=== PATIENT | female | born 1965 | race Caucasian/White ===

== ENCOUNTER 2021-01-09 16:57 | Outpatient (CLI) | payer OTHER, SELFPAY ==
--- NOTE | 2021-01-09 17:10 | XR_ITS ---
WS: [id number] ABDOMEN 1 VIEW(S) HISTORY: URINARY INCONTINENCE/ABD MASS LLQ /UTI/UTERINE FIBROIDS COMPARISON: 09/24/2014 CT. There is a large soft tissue mass centered in the pelvis arising into the abdomen. This mass was also seen on the prior study from 2014. Mass is best visualized over the RIGHT abdomen and pelvis measuri ng at least 7 length and transversely by greater than 10 cm. This mass probably extends into the LEFT abdomen. There are a few amorphic calcifications centered over the sacrum and in the LEFT adnexa. No bone abnormality. XR/XR abdomen 1V* [id number] IMPRESSION: 1. Large pelvic and abdominal mass as described above. This mass was also visu alized on the CT from 2014. No history of interval surgery. This could be ovari an or uterine in etiology. Recommend reevaluation by CT. CT abdomen and pelvis with IV and oral contrast recommended. 2. Displacement of the GI tract by the mass but no obstruction.
== END 2021-01-09 16:58 | disposition home or self-care (01) ==
LOC: RAD 17:01
PROVIDERS: PCP Electrodiagnostic Medicine; Visit Provider Electrodiagnostic Medicine
DX: R32 Unspecified urinary incontinence (principal); R19.04 Left lower quadrant abdominal swelling, mass and lump; R31.9 Hematuria, unspecified; N39.0 Urinary tract infection, site not specified; D25.9 Leiomyoma of uterus, unspecified
CPT/HCPCS: 74018

== ENCOUNTER 2021-01-16 08:07 | Outpatient (CLI) | payer OTHER, SELFPAY ==
--- NOTE | 2021-01-16 08:23 | CT_ITS ---
WS: [id number] Exam: CT abdomen pelvis w con* [id number] Date/Time of Exam: 01/16/2021 8:15 AM Reason For Exam: URINARY INCONTINENCE, LLQ ABDOMEN PAIN, HEMATURIA DLP: 1171.[address] scans at [facility] use at least one of these dose optimization techniques: automated e xposure control; mA and/or kV adjustment per patient size (includes targeted exams where dose is matc hed to clinical indication); or iterative reconstruction. The abdomen is evaluated in the axial plane with sagittal coronal reformatted images. Intravenous and oral contrast are administered. Compared to previous study 09/24/2014. A large bilobulated mass which probably arises from the pelvis extends into the abdomen. The mass ujlia sures 25 x 25 x 27 cm. The mass is predominantly solid and heterogeneous with areas of contrast enhan cement as well as focal areas of decreased attenuation probably representing necrosis. The mass is la rger than noted previously. The liver, stomach, pancreas, and spleen appear normal. The abdominal aor ta is normal in caliber. The portal vein and IVC are patent. Small bowel loops are not dilated. There is superior displacement of the transverse and right colon secondary to the above-described mass. No lymphadenopathy or ascites is seen. The kidneys function and drain normally. No renal obstruction. N ormal adrenal glands. There is significant compression of the urinary bladder within the pelvis. No p elvic lymphadenopathy is seen. No significant large bowel abnormality identified. No sign of acute ap pendix. Bony structures are unremarkable. Normal-appearing ovaries are not definitely identified. Parminder ateral pelvic varices. CT/CT abdomen pelvis w con* [id number] IMPRESSION: 1. Enlarging abdominal pelvic mass measuring 25 x 25 x 27 cm. The mass is solid with areas of heterogeneous contrast enhancement. There are also areas of calc ification and decreased attenuation which may represent necrosis. This mass lik addison arises from the pelvis that may be a large uterine fibroid. The mass causes significant compression of the urinary bladder. The mass also elevates the tra nsverse and right colon. 2. No indication of pelvic or abdominal lymphadenopathy or ascites.
[2021-01-16] MEDS: iohexol 300 mg/mL 50 mL Btl PO (10:11)
[2021-01-16] MEDS: iohexol 300 mg/mL 100 mL Btl IV (10:11)
== END 2021-01-16 08:08 | disposition home or self-care (01) ==
PROVIDERS: PCP Electrodiagnostic Medicine; Visit Provider Electrodiagnostic Medicine
DX: R32 Unspecified urinary incontinence (principal); R19.04 Left lower quadrant abdominal swelling, mass and lump; R31.9 Hematuria, unspecified
CPT/HCPCS: 74177; Q9967

== ENCOUNTER → 2021-02-10 10:09 | Outpatient (BNVA) | payer OTHER, SELFPAY | PROVIDERS: PCP Electrodiagnostic Medicine; Visit Provider Obstetrics & Gynecology | DX: R19.09 Other intra-abdominal and pelvic swelling, mass and lump (principal); N85.4 Malposition of uterus; Z12.4 Encounter for screening for malignant neoplasm of cervix; N95.0 Postmenopausal bleeding | CPT/HCPCS: 76856; 81500; 84443; 87624 ==

== ENCOUNTER 2024-06-29 09:55 | Oncology outpatient (recurring) (ONCR) | payer BC, SELFPAY ==
[2024-06-29 11:00] LABS: Basophils % 0.4 %; Eosinophils # 0.1 10^3/uL (0.0-0.8); Eosinophils % 0.7 %; Hematocrit 28.8 % (36-47); Lymphocytes # 0.4 10^3/uL (0.8-4.8); Mean Corpuscular HGB Conc 31.3 g/dL (30-55); Mean Corpuscular Hemoglobin 27.8 pg (27-33); Mean Corpuscular Volume 88.9 fl (85-98); Mean Platelet Volume 8.1 fL (7.4-10.4); Monocytes # 0.7 10^3/uL (0.2-0.9); Monocytes % 6.2 %; Neutrophils % 88.3 %; Nucleated Red Blood Cells % 0 %; Platelet Count 404 10^3/cmm (157-399); Red Blood Count 3.24 10^6/uL (3.85-5.65); Red Cell Distribution Width 13.2 % (12.1-15.1); White Blood Count 11.09 10^3/uL (3.29-11.43)
[2024-06-29 11:22] LABS: Alanine Aminotransferase 10 U/L (0-33); Albumin Level 3.7 g/dL (3.5-5.2); Alkaline Phosphatase 87 U/L (35-105); Anion Gap 14.9 (5-19); Aspartate Amino Transferase 16 U/L (0-32); Blood Urea Nitrogen 13 mg/dL (8-23); Calcium 9.4 mg/dL (8.5-10.5); Carbon Dioxide 26 mmol/L (22-29); Chloride 93 mmol/L (98-107); Creatinine Clr Calc Pharmacy 70.6688; Globulin 3.1 g/dL (1.3-4.6); Glomerular Filtration Rate 72.9 mL/min (90-130); Glucose 107 mg/dL (65-115); Osmolality Calculated 271 mOsm/kg (285-295); Potassium 3.9 mmol/L (3.5-5.1); Sodium 130 mmol/L (136-145); Total Bilirubin 0.3 mg/dL (0.15-1.2); Total Protein 6.8 g/dL (6.6-8.7)
== END 2024-07-01 23:59 | disposition home or self-care (01) ==
LOC: ONCMED 09:55
PROVIDERS: PCP Electrodiagnostic Medicine; Visit Provider Internal Medicine Medical Oncology
DX: C53.9 Malignant neoplasm of cervix uteri, unspecified (principal)
CPT/HCPCS: 36415; 80053; 85025

== ENCOUNTER 2024-07-21 11:18 | Emergency (ER) | payer BC, SELFPAY ==
[2024-07-21] VITALS (18 sets, daily range): BP systolic 98–129; BP diastolic 61–81; PULSE 114–139; RESP 13–26; TEMP 36.3–37; O2SAT 91–100
--- NOTE | 2024-07-21 11:40 | W.ED.GENADLT ---
HPI - General Adult General: Chief complaint: Wound/Laceration Stated complaint: sore on L shoulder, bleeding Time Seen by Provider: 07/21/24 11:36 History of Present Illness: 59-year-old female who presents with active bleeding from a fungating tumor that is eroded through the supraclavicular space on the left. She has a history of cervical cancer that is disseminated. Earlier this month she had a port placed and the description of is being a large infected tumor does not appear to be infected at this time but it is very actively bleeding the reports that he has had several episodes of this at home usually he is able to get the bleeding to stop with manual pressure at this time he cannot get it to stop the large amount of blood soaked around the patient's clothing and in bandages that had been applied prior to arrival. Associated symptoms: Deny chest pain, dyspnea or rash Related Data Home Medications ?Medication ?Instructions ?Recorded ?Confirmed lidocaine 5 % topical ointment 1 applic topical DAILY PRN Pain 06/29/24 07/21/24 (Scale Score 4-6) morphine 15 mg tablet,extended 15 mg PO Q12H 06/29/24 07/21/24 release sennosides 8.6 mg-docusate sodium 1 - 2 tab PO BID PRN Constipation 06/29/24 07/21/24 50 mg tablet (Stimulant Laxative Plus) amitriptyline 25 mg tablet 25 mg PO QPM 07/02/24 07/21/24 hydrocodone 5 mg-acetaminophen 325 1 tab PO Q6H PRN Pain 07/21/24 07/21/24 mg tablet Previous Rx's ?Medication ?Instructions ?Recorded ondansetron 8 mg disintegrating 8 mg PO Q8H PRN nausea and 06/29/24 tablet vomiting #60 tabs prochlorperazine maleate 10 mg 10 mg PO Q4H PRN mild nausea #30 06/29/24 tablet (Compazine) tabs gemcitabine 100 mg/mL intravenous 1,700 mg (17 mL) IV .COMPLEX #60 mL 07/21/24 solution Allergies Allergy/AdvReac Type Severity Reaction Status Date / Time oxycodone Allergy Intermediate ALGY-Joint Verified 07/03/24 11:25 Pain Review of Systems Const: Denies: fever(s) or chills Card: Denies: chest pain Resp: Denies: dyspnea GI: Denies: abdominal pain : Denies: dysuria, urinary frequency or urinary urgency Musc: Reports: neck pain; Denies: back pain Skin/Breast: Denies: rash PFSH ED PFSH: Medical History 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 Rivka Sherwood beverage server onc at [facility]; has had radiation; has L supraclavicular lymph node met that is large--has seen DR. Jones--surgeon--he sent her to ENT and was planning to have surgery but now DR. Sherwood for this Surgical History Hx of melanoma excision anterior neck Hx of hysterectomy hyst w/ BSO due to cervical cancer History of bilateral tubal ligation History of surgery on arm lipoma removed from R arm Family History Mother Cancer Unsure---but in vulva Father Hypertension Stroke Denies family history of Diabetes CAD (coronary artery disease) Clotting disorder Hyperlipidemia Chronic kidney disease (CKD) Bleeding disorder Thyroid disease Social History Smoking and tobacco/nicotine status: former use of tobacco/nicotine Quit status (tobacco/nicotine): has quit using Year quit tobacco: age 23 Alcohol intake: never Substance/Drug Use: current Substance/Drug use frequency: few times a month Household members: spouse Marital status: Number of children: 3 Highest education level completed: High School Graduate Current occupational status: unemployed 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 Physical Exam Const: GENERAL APPEARANCE: cooperative ORIENTATION/CONSCIOUSNESS: Yes oriented to person, Yes oriented to place and Yes oriented to time HENMT: COMMON NORMALS: normocephalic, atraumatic and hearing grossly normal bilaterally HEAD & SCALP: normocephalic and atraumatic Chest: OTHER: Resp: COMMON NORMALS: normal respiratory effort, No retractions, No use of accessory muscles and clear to auscultation bilaterally AUSCULTATION: clear to auscultation bilaterally Cardio: COMMON NORMALS: regular rate, regular rhythm and No murmurs present (Cardio) RATE: regular rate RHYTHM: regular rhythm GI: COMMON NORMALS: Soft to palpation and No hepatosplenomegaly present AUSCULTATION: Yes normoactive bowel sounds PALPATION: Yes Soft to palpation, No Tenderness to palpation present (GI), No Guarding due to palpation present (GI) and Yes No hepatosplenomegaly present Extremity: COMMON NORMALS: normal to inspection, capillary refill normal, no clubbing, cyanosis or edema, no calf tenderness and no pedal edema Neuro: SENSORIUM/ORIENTATION: Yes oriented to person, Yes oriented to place and Yes oriented to time Skin: COMMON NORMALS: no rashes or lesions noted GENERAL SKIN EXAM: no rashes or lesions noted Course Vital Signs: Vital signs: Vital Signs Temperature 98.3 F 07/21/24 16:13 Pulse Rate 127 H 07/21/24 16:45 Respiratory Rate 18 07/21/24 16:45 Blood Pressure 119/74 07/21/24 16:45 Pulse Oximetry 94 07/21/24 16:45 Oxygen Delivery Me thod Room Air 07/21/24 11:26 MDM - General Adult Medical Decision Making On arrival patient has large fungating mass at the base of the left side of the neck. He is actively bleeding from several different areas. Large amount of blood on her clothing and on bandages from home estimate greater than 500 mL. Observed wound blood coming from so many different areas difficult to pinpoint. Quick clot applied and direct pressure bandage held in place by staff. Will transfer patient to a trauma room. Injected the areas that appear to still be bleeding the most with lidocaine with epinephrine 2 figure of 8 sutures were applied see the picture placed on the chart under physical exam. Once the sutures were placed some majority of the bleeding stopped quick clot was reapplied to the area and a pressure bandage applied in a band a layer like fashion using Coban. From that point patient did not have any further bleeding. Was given pain medications as needed will transfer to his Rafa to [facility] for patient is seen for this before. Mostly this will be palliative treatment since the lesion is quite large and is extends down into the mediastinum. Bleeding now controlled discussed the hospitalist at [facility] they have excepted room assignment and given will transfer via [facility]. Patient did have significant drop in her hemoglobin 1 unit of packed red blood cells transfused repeat hemoglobin is stable at 9.1. Had dipped to 7.5 she was tachycardic with this. Lab Data 07/21/24 16:35 07/21/24 11:57 Radiology Impressions Chest X-Ray 07/21/24 11:44 IMPRESSION: Mild right basilar subsegmental atelectasis. Lungs are otherwise clear. Chest CT 07/21/24 12:26 IMPRESSION: 1. Large heterogeneously enhancing fungating soft tissue metastasis involving the LEFT neck and supraclavicular region. Associated internal hemorrhagic blood products with some areas of contrast blushing. Numerous small associated parasitized feeding vessels. 2. LEFT common carotid artery remains patent. LEFT vertebral artery remains patent. 60 to 70% stenosis LEFT proximal subclavian artery encased by tumor just distal to the takeoff of the vertebral artery. 3. Soft tissue tumor extends into the anterior mediastinum, abutting the aortic arch. Bulky necrotic paratracheal, RIGHT hilar, and subcarinal lymphadenopathy. 4. Tumor erodes the manubrium and involves the first rib. 5. Partially visualized large hepatic metastasis. 6. Partially visualized LEFT hydronephrosis. 7. Numerous metastatic pulmonary nodules described above. Laboratory Results WBC 15.30 10^3/uL (3.29-11.43) H 07/21/24 16:35 RBC 3.28 10^6/uL (3.85-5.65) L 07/21/24 16:35 Hgb 9.10 g/dL (11.27-16.99) L 07/21/24 16:35 Hct 29.6 % (36-47) L 07/21/24 16:35 MCV 90.2 fl (85-98) 07/21/24 16:35 MCH 27.7 pg (27-33) 07/21/24 16:35 MCHC 30.7 g/dL (30-55) 07/21/24 16:35 RDW 14.2 % (12.1-15.1) 07/21/24 16:35 Plt Count 412 10^3/cmm (157-399) H 07/21/24 16:35 MPV 8.3 fL (7.4-10.4) 07/21/24 16:35 Neut % (Auto) 86.6 % 07/21/24 16:35 Lymph % (Auto) 6.2 % 07/21/24 16:35 Armstrong % (Auto) 6.1 % 07/21/24 16:35 Eos % (Auto) 0.1 % 07/21/24 16:35 Baso % (Auto) 0.5 % 07/21/24 16:35 Neut # (Auto) 13.24 10^3/uL (1.8-7.7) H 07/21/24 16:35 Lymph # (Auto) 1.0 10^3/uL (0.8-4.8) 07/21/24 16:35 Armstrong # (Auto) 0.9 10^3/uL (0.2-0.9) 07/21/24 16:35 Eos # (Auto) 0.0 10^3/uL (0.0-0.8) 07/21/24 16:35 Baso # (Auto) 0.1 10^3/uL (0.0-0.1) 07/21/24 16:35 Nucleated RBC % (auto) 0 % 07/21/24 16:35 Nucleated RBCs # 0.0 /100WBC 07/21/24 16:35 PT 13.90 SECONDS (12.1-14.9) 07/21/24 11:57 INR 1.00 (0.8-1.2) 07/21/24 11:57 APTT 28.0 SECONDS (23.9-36.7) 07/21/24 11:57 Sodium 133 mmol/L (136-145) L 07/21/24 11:57 Potassium 4.3 mmol/L (3.5-5.1) 07/21/24 11:57 Chloride 97 mmol/L (98-107) L 07/21/24 11:57 Carbon Dioxide 24 mmol/L (22-29) 07/21/24 11:57 Anion Gap 16.3 (5-19) 07/21/24 11:57 BUN 16 mg/dL (8-23) 07/21/24 11:57 Creatinine 0.8 mg/dL (0.5-0.9) 07/21/24 11:57 GFR Calculation 72.9 mL/min (90-130) L 07/21/24 11:57 Glucose 138 mg/dL (65-115) H 07/21/24 11:57 Calculated Osmolality 279 mOsm/kg (285-295) L 07/21/24 11:57 Calcium 9.7 mg/dL (8.5-10.5) 07/21/24 11:57 Total Bilirubin 0.2 mg/dL (0.15-1.2) 07/21/24 11:57 AST 29 U/L (0-32) 07/21/24 11:57 ALT 28 U/L (0-33) 07/21/24 11:57 Alkaline Phosphatase 92 U/L (35-105) 07/21/24 11:57 Total Protein 6.3 g/dL (6.6-8.7) L 07/21/24 11:57 Albumin 3.2 g/dL (3.5-5.2) L 07/21/24 11:57 Globulin 3.1 g/dL (1.3-4.6) 07/21/24 11:57 Blood Type O Positive 07/21/24 12:15 Rho(D) Type Rh positive 07/21/24 12:15 Antibody Screen Negative 07/21/24 12:15 Crossmatch See Detail 07/21/24 12:15 All radiology interpretation(s) finalized by discharge Discharge Plan Discharge Patient Disposition: Xfer Short-Term Hosp Clinical Impression: 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
--- NOTE | 2024-07-21 11:44 | XRR_ITS ---
PROCEDURE INFORMATION: Exam: XR Chest Exam date and time: 07/21/2024 12:40 PM Age: 59 years old Clinical indication: Other: Lt chest sore bleeding; Additional info: Bleed left side chest TECHNIQUE: Imaging protocol: Radiologic exam of the chest. Views: 1 view. COMPARISON: CT abdomen pelvis w con* [id number] 01/16/2021 10:08 AM FINDINGS: Lungs: Mild right basilar subsegmental atelectasis. Lungs are otherwise clear. Pleural spaces: No pneumothorax or pleural effusion. Heart/Mediastinum: Cardiomediastinal silhouette is unremarkable. Bones/joints: No acute osseous or soft tissue abnormality. XR/XR chest 1V portable [id number] IMPRESSION: Mild right basilar subsegmental atelectasis. Lungs are otherwise clear.
[2024-07-21] MEDS: morphine 4 mg/mL SDV 1 mL IVP (12:00)
[2024-07-21] MEDS: ondansetron 2 mg/ML SDV 2 mL 4 MG IVP (12:00)
--- NOTE | 2024-07-21 12:14 | ECG_ITS ---
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 Measurements Intervals [place] Rate: 142 P: 75 MD: 122 QRS: 55 QRSD: 78 T: 46 QT: 275 QTc: 423 Interpretive Statements SINUS TACHYCARDIA, POSSIBLE ATRIAL FLUTTER ABNORMAL RHYTHM ECG No previous ECG available for comparison Electronically Signed On 07-21-2024 17:42:01 CDT by Malachi Giron M.D. [email or web address]
[2024-07-21] MEDS: tranexamic acid 1,000 MG/100 ML PREMIX 12.5 MG IV (12:15)
--- NOTE | 2024-07-21 12:19 | PC.PHAR ---
[facility]oned [facility] and spoke with [facility] to verify all pt medications and last fill dates. Pts' cancer drug has been re ordered by Dr Coe, today, and is listed on her med list.
[2024-07-21] MEDS: lidocaine-epi 1% 20 mL INJ INJECTION (12:21)
--- NOTE | 2024-07-21 12:26 | CT_ITS ---
WS: [id number] CT CHEST TECHNIQUE: Contrast enhanced CT of the chest with coronal and sagittal reformatted images. CLINICAL INFORMATION: tumor eroded supraclavicular COMPARISON: None. DLP: 324.[address] scans at [facility] use at least one of these dose optimization techniques: automated exposure control; mA and/or kV adjustment per patient size (includes targeted exams where dose is matched to clinical indication); or iterative reconstruction. FINDINGS: Numerous pulmonary nodules throughout both lungs more prominent in the mid and lower lungs compatible with metastatic disease. Largest nodule LEFT lower lobe measures approximately 2.1 x 1.6 cm. Normal caliber thoracic aorta. Proximal main pulmonary arteries are normal. Large enhancing necrotic soft tissue metastasis involving the LEFT supraclavicular region. This extends to the skin with associated necrosis and hemorrhagic blood products. This abuts the clavicle which appears intact. This extends into the LEFT neck soft tissues involving the sternocleidomastoid. LEFT common carotid artery remains patent. Narrowing of the subclavian artery which is encased by tumor with approximately 60 to 70% narrowing just distal to the takeoff of the LEFT vertebral artery which remains patent. Distal LEFT subclavian artery remains patent. Tumor extends to the chest wall with involvement of the sternoclavicular joint and manubrium. Extension into the anterior mediastinum extending to the AP window. Extensive bulky necrotic lymphadenopathy RIGHT paratracheal and RIGHT hilar. Associated narrowing of the SVC. Bulky necrotic subcarinal lymphadenopathy. Partially evaluated large bulky metastatic lesions involving the RIGHT hepatic lobe measuring up to 7.5 cm. Partially visualized upper abdominal lymphadenopathy. Partially visualized moderate LEFT hydronephrosis. Small esophageal hiatal hernia. CT/CT chest w con* [id number] IMPRESSION: 1. Large heterogeneously enhancing fungating soft tissue metastasis involving the LEFT neck and supraclavicular region. Associated internal hemorrhagic blood products with some areas of contrast blushing. Numerous small associated jad itized feeding vessels. 2. LEFT common carotid artery remains patent. LEFT vertebral artery remains pa tent. 60 to 70% stenosis LEFT proximal subclavian artery encased by tumor just distal to the takeoff of the vertebral artery. 3. Soft tissue tumor extends into the anterior mediastinum, abutting the aorti c arch. Bulky necrotic paratracheal, RIGHT hilar, and subcarinal lymphadenopath y. 4. Tumor erodes the manubrium and involves the first rib. 5. Partially visualized large hepatic metastasis. 6. Partially visualized LEFT hydronephrosis. 7. Numerous metastatic pulmonary nodules described above.
[2024-07-21 12:29] LABS: Basophils # 0.1 10^3/uL (0.0-0.1); Basophils % 0.7 %; Eosinophils # 0.2 10^3/uL (0.0-0.8); Hematocrit 24.9 % (36-47); Lymphocytes # 1.4 10^3/uL (0.8-4.8); Lymphocytes % 13.2 %; Mean Corpuscular HGB Conc 30.1 g/dL (30-55); Mean Corpuscular Hemoglobin 27.1 pg (27-33); Mean Corpuscular Volume 89.9 fl (85-98); Mean Platelet Volume 8.3 fL (7.4-10.4); Monocytes % 9.3 %; Neutrophils # 7.99 10^3/uL (1.8-7.7); Neutrophils % 74.3 %; Nucleated Red Blood Cells % 0 %; Platelet Count 478 10^3/cmm (157-399); Red Blood Count 2.77 10^6/uL (3.85-5.65); Red Cell Distribution Width 14.2 % (12.1-15.1); White Blood Count 10.76 10^3/uL (3.29-11.43)
[2024-07-21 13:00] LABS: Alanine Aminotransferase 28 U/L (0-33); Albumin Level 3.2 g/dL (3.5-5.2); Alkaline Phosphatase 92 U/L (35-105); Anion Gap 16.3 (5-19); Aspartate Amino Transferase 29 U/L (0-32); Blood Urea Nitrogen 16 mg/dL (8-23); Calcium 9.7 mg/dL (8.5-10.5); Carbon Dioxide 24 mmol/L (22-29); Chloride 97 mmol/L (98-107); Globulin 3.1 g/dL (1.3-4.6); Glomerular Filtration Rate 72.9 mL/min (90-130); Glucose 138 mg/dL (65-115); Osmolality Calculated 279 mOsm/kg (285-295); Potassium 4.3 mmol/L (3.5-5.1); Sodium 133 mmol/L (136-145); Total Bilirubin 0.2 mg/dL (0.15-1.2); Total Protein 6.3 g/dL (6.6-8.7)
[2024-07-21] MEDS: iohexol 350 mg/mL 500 mL Btl (per mL) IV (13:52)
[2024-07-21] MEDS: HYDROmorphone 0.5 MG/0.5 ML INJ IVP (14:29)
[2024-07-21] MEDS: sodium chloride 0.9% 100 mL Bag 50 ML IV (14:46)
--- NOTE | 2024-07-21 16:20 | PC.NURSE ---
report called to DANGELO Albrecht at [facility] for pt transfer.
[2024-07-21 16:43] LABS: Basophils # 0.1 10^3/uL (0.0-0.1); Basophils % 0.5 %; Eosinophils % 0.1 %; Hematocrit 29.6 % (36-47); Lymphocytes % 6.2 %; Mean Corpuscular HGB Conc 30.7 g/dL (30-55); Mean Corpuscular Hemoglobin 27.7 pg (27-33); Mean Corpuscular Volume 90.2 fl (85-98); Mean Platelet Volume 8.3 fL (7.4-10.4); Monocytes # 0.9 10^3/uL (0.2-0.9); Monocytes % 6.1 %; Neutrophils # 13.24 10^3/uL (1.8-7.7); Neutrophils % 86.6 %; Nucleated Red Blood Cells % 0 %; Platelet Count 412 10^3/cmm (157-399); Red Blood Count 3.28 10^6/uL (3.85-5.65); Red Cell Distribution Width 14.2 % (12.1-15.1)
[2024-07-23 02:58] LABS: Bacillus cereus group Not Detected (NOT DETECT); Bacillus subtillis group Not Detected (NOT DETECT); Corynebacterium Not Detected (NOT DETECT); Cutibacterium acnes (P.acnes) Not Detected (NOT DETECT); Enterococcus Not Detected (NOT DETECT); Enterococcus faecalis Not Detected (NOT DETECT); Enterococcus faecium Not Detected (NOT DETECT); Lactobacillus species Not Detected (NOT DETECT); Listeria Not Detected (NOT DETECT); Listeria monocytogenes Not Detected (NOT DETECT); Micrococcus Not Detected (NOT DETECT); Pan Candida Not Detected (NOT DETECT); Pan Gram-Negative Not Detected (NOT DETECT); Staphylococcus epidermidis Not Detected (NOT DETECT); Staphylococcus lugdunensis Not Detected (NOT DETECT); Staphylococcus species Not Detected (NOT DETECT); Streptococcus agalactiae Not Detected (NOT DETECT); Streptococcus anginosus group Not Detected (NOT DETECT); Streptococcus pneumoniae Not Detected (NOT DETECT); Streptococcus pyogenes Not Detected (NOT DETECT); Streptococcus species Not Detected (NOT DETECT)
[2024-07-23 10:28] LABS: Bacillus cereus group Not Detected (NOT DETECT); Bacillus subtillis group Not Detected (NOT DETECT); Corynebacterium Not Detected (NOT DETECT); Cutibacterium acnes (P.acnes) Not Detected (NOT DETECT); Enterococcus Not Detected (NOT DETECT); Enterococcus faecalis Not Detected (NOT DETECT); Enterococcus faecium Not Detected (NOT DETECT); Lactobacillus species Not Detected (NOT DETECT); Listeria Not Detected (NOT DETECT); Listeria monocytogenes Not Detected (NOT DETECT); Micrococcus Not Detected (NOT DETECT); Pan Candida Not Detected (NOT DETECT); Pan Gram-Negative Not Detected (NOT DETECT); Staphylococcus epidermidis Not Detected (NOT DETECT); Staphylococcus lugdunensis Not Detected (NOT DETECT); Staphylococcus species Detected (NOT DETECT); Streptococcus agalactiae Not Detected (NOT DETECT); Streptococcus anginosus group Not Detected (NOT DETECT); Streptococcus pneumoniae Not Detected (NOT DETECT); Streptococcus pyogenes Not Detected (NOT DETECT); Streptococcus species Not Detected (NOT DETECT); mecA Not Detected (NOT DETECT); mecC Not Detected (NOT DETECT)
== END 2024-07-21 17:43 | disposition short-term general hospital (02) ==
PROVIDERS: Emergency Provider Family Medicine
DX: C77.3 Secondary and unspecified malignant neoplasm of axilla and upper limb lymph nodes (principal); C79.2 Secondary malignant neoplasm of skin; Z85.41 Personal history of malignant neoplasm of cervix uteri; Z85.820 Personal history of malignant melanoma of skin; Z87.891 Personal history of nicotine dependence
CPT/HCPCS: 36415; 36430; 71045; 71260; 80053; 85025; 85610; 85730; 86850; 86900; 86920; 87040; 93005; 96365; 96366; 96375; 99285; 99291; 99292; J1171; J2270; J2405; J9999; P9016

== ENCOUNTER 2024-08-18 23:58 | Emergency (ER) | payer BC, SELFPAY ==
[2024-08-19] VITALS (26 sets, daily range): BP systolic 92–150; BP diastolic 55–82; PULSE 71–130; RESP 12–19; TEMP 35.8–36.6; O2SAT 92–100; BMI 17.7
--- NOTE | 2024-08-19 00:33 | ED_ITS ---
HPI - Wound/Laceration 2 General: Chief Complaint: Wound/Laceration Stated Complaint: Left Shoulder Bleed From Cancer Time Seen by Provider: 08/19/24 00:20 History of Present Illness: 59-year-old female with a history of cer vical cancer that is now malignant and she has a supraclavicular space on the left where she has a fungating tumor. She presents today with some bleeding from this tumor that was fairly severe but has stopped on presentation. Blood pressure is a little low and she is a little bit tachycardic on presentation Related Data Home Medications ?Medication ?Instructions ?Recorded ?Confirmed lidocaine 5 % topical ointment 1 applic topical DAILY PRN Pain 06/29/24 07/21/24 (Scale Score 4-6) morphine 15 mg tablet,extended 15 mg PO Q12H 06/29/24 07/21/24 release sennosides 8.6 mg-docusate sodium 1 - 2 tab PO BID PRN Constipation 06/29/24 07/21/24 50 mg tablet (Stimulant Laxative Plus) amitriptyline 25 mg tablet 25 mg PO QPM 07/02/2407/21 hydrocodone 5 mg-acetaminophen 325 1 tab PO Q6H PRN Pa in 07/21/24 07/21/24 mg tablet Previous Rx's ?Medication ?Instructions ?Recorded ondansetron 8 mg disintegrating 8 mg PO Q8H PRN nausea and 06/29/24 tablet vomiting #60 tabs prochlorperazine maleate 10 mg 10 mg PO Q4H PRN mild n ausea #30 06/29/24 tablet (Compazine) tabs gemcitabine 100 mg/mL intravenous 1,700 mg (17 mL) IV .COMPLEX #60 mL 07/21/24 solution Allergies Allergy/AdvReac Type Severity Reaction Status Date / Time oxycodone Allergy Intermediate ALGY-Joint Verified 08/19/24 00:22 Pain Review of Systems 2 Narrative: Constitutional symptoms: Negative except as documented in HPI. Skin symptoms: Negative except as documented in HPI. Eye symptoms: Negative except as documented in HPI. ENMT symptoms: Negative except as documented in HPI. Respiratory symptoms: Negative except as documented in HPI. Cardiovascular symptoms: Negative except as documented in HPI. Gastrointestinal symptoms: Negative except as documented in HPI. Genitourinary symptoms: Negative except as documented in HPI. Musculoskeletal symptoms: Negative except as documented in HPI. Neurologic symptoms: Negative except as documented in HPI. Psychiatric symptoms: Negative except as documented in HPI. Endocrine symptoms: Negative except as documented in HPI. 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 Jones--surgeon--he sent her to ENT and was planning to have surgery but now DR. Sherwood for this Surgical History Hx of melanoma excision anterior neck Hx of hysterectomy hyst w/ BSO due to cervical cancer History of bilateral tubal ligation History of surgery on arm lipoma removed from R arm Family History Mother Cancer Unsure---but in vulva Father Hypertension Stroke Denies family history of Diabetes CAD (coronary artery disease) Clotting disorder Hyperlipidemia Chronic kidney disease (CKD) Bleeding disorder Thyroid disease Social History Smoking and tobacco/nicotine status: former use of tobacco/nicotine Quit status (tobacco/nicotine): has quit using Year quit tobacco: age 23 Alcohol intake: never Substance/Drug Use: current Substance/Drug use frequency: few times a month Household members: spouse Marital status: Number of children: 3 Highest education level completed: High School Graduate Current occupational status: unemployed 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 Cachectic Skin: Warm, dry. Large fungating tumor as demonstrated below on the left shoulder and neck area Head: Normocephalic, atraumatic. Neck: Supple, trachea midline. Eye: Extraocular movements are intact. Ears, nose, mouth and throat: mucosa moist. Cardiovascular: Regular, tachycardic Respiratory: Lungs are clear to auscultation, respirations are non-labored, breath sounds are equal, Symmetrical chest wall expansion. Gastrointestinal: Soft, Nontender, Non distended Musculoskeletal: Normal ROM, no deformity. Neurological: Alert and oriented, No focal neurological deficit observed. Psychiatric: Cooperative, appropriate mood & affect. Course 2 Vital Signs: Vital signs: Vital Signs Temperature 96.4 F L 08/19/24 00:09 Pulse Rate 115 H 08/19/24 02:00 Respiratory Rate 15 08/19/24 01:30 Blood Pressure 112/73 08/19/24 02:00 Pulse Oximetry 100 08/19/24 02:00 Oxygen Delivery Me thod Room Air 08/19/24 00:09 MDM - Wound/Laceration Medical Decision Making Medical decision making: Differential diagnosis including but not limited to and based on the above HPI, review of systems and physical exam: Bleeding has stopped but patient is borderline hypotensive and tachycardic so checking to make sure if she is or is not anemic. Orders placed to evaluate differential diagnosis based on the above differential, HPI and physical exam Lab Review: Laboratory results were reviewed and interpreted by myself the emergency room physician. Mild leukocytosis with a white count of 16,000. Hemoglobin low at 6.5. Patient is being transfused. No renal failure. Sodium is low at 128. 500 saline given on top of 2 units of blood. I reviewed the patient's medical record. Reexamination: Bleeding has stopped. Patient is being given blood and then will be discharged home. No increased work of breathing. No altered mental status. Assessment and plan: Anemia Fungating wound Bleeding Hyponatremia Dehydration ? 2 units PRBCs. 500 mL normal saline bolus. - Discharged home - Discussed plan with patient. Answered any questions. - Evaluation and treatment of this problem were appropriate in the emergency setting. Lab Data 08/19/24 01:25 08/19/24:25 Laboratory Results WBC 16.55 10^3/uL (3.29-11.43) H 08/19/24 01:25 RBC 2.53 10^6/uL (3.85-5.65) L 08/19/24:25 Hgb 6.50 g/dL (11.27-16.99) L* 08/19/24: Hct 21.3 % (36-47) L 08/19/24:25 MCV 84.2 fl (85-98) L 08/19/24:25 MCH 25.7 pg (27-33) L 08/19/24 01:25 MCHC 30.5 g/dL (30-55) 08/19/24 01:25 RDW 14.5 % (12.1-15.1) 08/19/24 01:25 Plt Count 402 10^3/cmm (157-399) H 08/19/24 01:25 MPV 8.2 fL (7.4-10.4) 08/19/24 01:25 Neut % (Auto) 87.5 % 08/19/24 01:25 Lymph % (Auto) 3.1 % 08/19/24 01:25 [place] % (Auto) 7.9 % 08/19/24 01:25 Eos % (Auto) 0.3 % 08/19/24 01:25 Baso % (Auto) 0.4 % 08/19/24 01:25 Neut # (Auto) 14.47 10^3/uL (1.8-7.7) H 08/19/24 01:25 Lymph # (Auto) 0.5 10^3/uL (0.8-4.8) L 08/19/24 01:25 [place] # (Auto) 1.3 10^3/uL (0.2-0.9) H 08/19/24 01:25 Eos # (Auto) 0.1 10^3/uL (0.0-0.8) 08/19/24 01:25 Baso # (Auto) 0.1 10^3/uL (0.0-0.1) 08/19/24 01:25 Nucleated RBC % (auto) 0 % 08/19/24 01:25 Nucleated RBCs # 0.0 /100WBC 08/19/24 01:25 Sodium 128 mmol/L (136-145) L 08/19/24 01:25 Potassium 4.9 mmol/L (3.5-5.1) 08/19/24 01:25 Chloride 92 mmol/L (98-107) L 08/19/24 01:25 Carbon Dioxide 25 mmol/L (22-29) 08/19/24 01:25 Anion Gap 15.9 (5-19) 08/19/24 01:25 BUN 19 mg/dL (8-23) 08/19/24 01:25 Creatinine 0.9 mg/dL (0.5-0.9) 08/19/24 01:25 GFR Calculation 63.7 mL/min (90-130) L 08/19/24 01:25 Glucose 164 mg/dL (65-115) H 08/19/24 01:25 Calculated Osmolality 272 mOsm/kg (285-295) L 08/19/24 01:25 Calcium 10.7 mg/dL (8.5-10.5) H 08/19/24 01:25 Total Bilirubin 0.2 mg/dL (0.15-1.2) 08/19/24:25 AST 28 U/L (0-32) 08/19/24:25 ALT 16 U/L (0-33) 08/19/24:25 Alkaline Phosphatase 126 U/L (35-105) H 08/19/24 01:25 Total Protein 6.1 g/dL (6.6-8.7) L 08/19/24 01:25 Albumin 3.1 g/dL (3.5-5.2) L 08/19/24:25 Globulin 3.0 g/dL (1.3-4.6) 08/19/24 01:25 Blood Type O Positive 08/19/24 01:25 Rho(D) Type Rh positive 08/19/24 01:25 Antibody Screen Negative 08/19/24 01:25 Crossmatch See Detail 08/19/24 01:25 No radiology studies performed this visit Discharge Plan Discharge Patient Disposition: Home Clinical Impression: Anemia, Hyponatremia, Dehydration, Mass of skin of shoulder, Cervical carcinoma, Bleeding Condition: Stable Prescriptions: No Action amitriptyline 25 mg tablet 25 mg PO QPM morphine 15 mg tablet extended release 15 mg PO Q12H lidocaine 5 % ointment 1 applic topical DAILY PRN (Reason: Pain (Scale Score 4-6)) sennosides-docusate sodium [Stimulant Laxative Plus] 8.6-50 mg tablet 1 - 2 tab PO BID PRN (Reason: Constipation) ondansetron 8 mg tablet,disintegrating 8 mg PO Q8H PRN (Reason: nausea and vomiting) Qty: 60 0RF prochlorperazine maleate [Compazine] 10 mg tablet 10 mg PO Q4H PRN (Reason: mild nausea) Qty: 30 3RF gemcitabine 100 mg/mL solution 1,700 mg IV .COMPLEX Qty: 60 5RF Rx Instructions: 1,700 mg on day 1,8,15 of 28 day cycle hydrocodone-acetaminophen 5-325 mg tablet 1 tab PO Q6H PRN (Reason: Pain) Discharge Orders: Discharge ED (Routine); Ordered 08/19/24 Ordered By: Melvi Martino Discharge Diet: Usual diet Discharge Activity: Increase activity as tolerated Patient Instructions: Anemia (ED), Opioid Safety, Pain Management Activity Restrictions/Additional Instructions: Thank you for choosing [facility] for your healthcare needs today. You have been screened and evaluated and felt safe for discharge. Health conditions do change or evolve sometimes and as such it is important that you follow up with your Primary Doctor to be re checked, 3-5 days is a general good time frame for follow up. 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
[2024-08-19] MEDS: ondansetron hcl ODT 4 mg Tab 8 MG PO (00:56)
[2024-08-19 01:31] LABS: Basophils # 0.1 10^3/uL (0.0-0.1); Basophils % 0.4 %; Eosinophils # 0.1 10^3/uL (0.0-0.8); Eosinophils % 0.3 %; Hematocrit 21.3 % (36-47); Lymphocytes # 0.5 10^3/uL (0.8-4.8); Lymphocytes % 3.1 %; Mean Corpuscular HGB Conc 30.5 g/dL (30-55); Mean Corpuscular Hemoglobin 25.7 pg (27-33); Mean Corpuscular Volume 84.2 fl (85-98); Mean Platelet Volume 8.2 fL (7.4-10.4); Monocytes # 1.3 10^3/uL (0.2-0.9); Monocytes % 7.9 %; Neutrophils # 14.47 10^3/uL (1.8-7.7); Neutrophils % 87.5 %; Nucleated Red Blood Cells % 0 %; Platelet Count 402 10^3/cmm (157-399); Red Blood Count 2.53 10^6/uL (3.85-5.65); Red Cell Distribution Width 14.5 % (12.1-15.1); White Blood Count 16.55 10^3/uL (3.29-11.43)
[2024-08-19 01:47] LABS: Alanine Aminotransferase 16 U/L (0-33); Albumin Level 3.1 g/dL (3.5-5.2); Alkaline Phosphatase 126 U/L (35-105); Anion Gap 15.9 (5-19); Aspartate Amino Transferase 28 U/L (0-32); Blood Urea Nitrogen 19 mg/dL (8-23); Calcium 10.7 mg/dL (8.5-10.5); Carbon Dioxide 25 mmol/L (22-29); Chloride 92 mmol/L (98-107); Creatinine Clr Calc Pharmacy 57.5521; Glomerular Filtration Rate 63.7 mL/min (90-130); Glucose 164 mg/dL (65-115); Osmolality Calculated 272 mOsm/kg (285-295); Potassium 4.9 mmol/L (3.5-5.1); Sodium 128 mmol/L (136-145); Total Bilirubin 0.2 mg/dL (0.15-1.2); Total Protein 6.1 g/dL (6.6-8.7)
[2024-08-19] MEDS: sodium chloride 0.9% 100 mL Bag 50 ML IV ×2 (02:48→05:04)
[2024-08-19] MEDS: sodium chloride 0.9% 500 ML 999 ML IV (04:36)
== END 2024-08-19 09:52 | disposition home or self-care (01) ==
PROVIDERS: Emergency Provider Emergency Medicine
DX: R22.32 Localized swelling, mass and lump, left upper limb (principal); D64.9 Anemia, unspecified; E87.1 Hypo-osmolality and hyponatremia; E86.0 Dehydration; D06.9 Carcinoma in situ of cervix, unspecified; Z87.891 Personal history of nicotine dependence; C76.0 Malignant neoplasm of head, face and neck
CPT/HCPCS: 36430; 80053; 85025; 86850; 86900; 86920; 96360; 99284; J7040; P9016; Q0162

== ENCOUNTER 2024-10-06 19:55 | Emergency (ER) | payer BC, SELFPAY ==
[2024-10-06] VITALS (7 sets, daily range): BP systolic 98–108; BP diastolic 55–78; PULSE 118–138; RESP 15–19; TEMP 36.9–37; O2SAT 92–100; BMI 18.6
--- NOTE | 2024-10-06 20:33 | ED_ITS ---
HPI - Wound/Laceration 2 General: Chief Complaint: Wound/Laceration Stated Complaint: bleeding from neck Time Seen by Provider: 10/06/24 20:06 History of Present Illness: Patient comes to the emergency department with bleeding from a mass on her left neck/upper chest wall. Patient has a history of a fungating metastatic lesion on her left upper chest that is supraclavicular. States that her doctors will not remove it because of how vascular it is. She states that it will bleed occasionally. Today it started bleeding and she could not get it to stop. Related Data Home Medications ?Medication ?Instructions ?Recorded ?Confirmed lidocaine 5 % topical ointment 1 applic topical DAILY PRN Pain 06/29/24 08/19/24 (Scale Score 4-6) sennosides 8.6 mg-docusate sodium 1 - 2 tab PO BID PRN Constipation 06/29/24 08/19/24 50 mg tablet (Stimulant Laxative Plus) amitriptyline 25 mg tablet 25 mg PO QPM 07/02/2408/19 hydrocodone 5 mg-acetaminophen 325 1 tab PO Q6H PRN Pa in 07/21/24 08/19/24 mg tablet hydrocodone 7.5 mg-acetaminophen 1 tab PO Q4H PRN Natasha re Pain 08/19/24 08/19/24 325 mg tablet (Scale Score 7-10) lactulose 10 gram/15 mL oral 30 ml PO BID PRN Constipa tion 08/19/24 08/19/24 solution lorazepam 1 mg tablet 1 mg PO Q6H PRN anxiety 08/0208/19/24 morphine 30 mg tablet,extended 30 mg PO Q12H 08/19/24 08/19/24 release Previous Rx's ?Medication ?Instructions ?Recorded ondansetron 8 mg disintegrating 8 mg PO Q8H PRN nausea and 06/29/24 tablet vomiting #60 tabs prochlorperazine maleate 10 mg 10 mg PO Q4H PRN mild n ausea #30 06/29/24 tablet (Compazine) tabs gemcitabine 100 mg/mL intravenous 1,700 mg (17 mL) IV .COMPLEX #60 mL 07/21/24 solution Allergies Allergy/AdvReac Type Severity Reaction Status Date / Time oxycodone Allergy Intermediate ALGY-Joint Verified 08/19/24 00:22 Pain PFSH ED 2 PFS: Medical History (Updated 10/06/24 @ 21:41 by Red Glass MD) 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 Jones--surgeon--he sent her to ENT and was planning to have surgery but now DR. Sherwood for this Surgical History Hx of melanoma excision anterior neck Hx of hysterectomy hyst w/ BSO due to cervical cancer History of bilateral tubal ligation History of surgery on arm lipoma removed from R arm Family History Mother Cancer Unsure---but in vulva Father Hypertension Stroke Denies family history of Diabetes CAD (coronary artery disease) Clotting disorder Hyperlipidemia Chronic kidney disease (CKD) Bleeding disorder Thyroid disease Social History Smoking and tobacco/nicotine status: former use of tobacco/nicotine Quit status (tobacco/nicotine): has quit using Year quit tobacco: age 23 Alcohol intake: never Substance/Drug Use: current Substance/Drug use frequency: few times a month Household members: spouse Marital status: Number of children: 3 Highest education level completed: High School Graduate Current occupational status: unemployed 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 Her hemoglobin came back at 5.8. The bleeding is controlled at this time. Will start blood transfusion. Given the extent of her bleeding and her low hemoglobin I spoke with the hospitalist and we will admit the patient to observation overnight for blood transfusion and observation of the bleeding mass. After seeing the patient here in the emergency department both the hospitalist and the patient would like to be transferred to [facility] for another opinion regarding her mass and possible treatment. Will continue blood transfusion, and start antibiotics for possible superinfection of the supraclavicular mass. I spoke with Gil gonzalez at [facility] and they have accepted the patient in transfer. Dr. Castle Lab Data 10/06/24 20:53 10/06/24 20:53 Laboratory Results WBC 19.78 10^3/uL (3.29-11.43) H 10/06/24 20:53 RBC 2.31 10^6/uL (3.85-5.65) L 10/06/24 20:53 Hgb 5.80 g/dL (11.27-16.99) L* 10/06/24 20:53 Hct 19.7 % (36-47) L* 10/06/24 20:53 MCV 85.3 fl (85-98) 10/06/24 20: MCH 25.1 pg (27-33) L 10/06/24 20:53 MCHC 29.4 g/dL (30-55) L 10/06/24 20:53 RDW 16.3 % (12.1-15.1) H 10/06/24 20:53 Plt Count 487 10^3/cmm (157-399) H 10/06/24 20:53 MPV 8.7 fL (7.4-10.4) 10/06/24 20:53 Neut % (Auto) 91.9 % 10/06/24 20:53 Lymph % (Auto) 2.0 % 10/06/24 20:53 [place] % (Auto) 4.8 % 10/06/24 20:53 Eos % (Auto) 0.1 % 10/06/24 20:53 Baso % (Auto) 0.4 % 10/06/24 20:53 Neut # (Auto) 18.19 10^3/uL (1.8-7.7) H 10/06/24 20:53 Lymph # (Auto) 0.4 10^3/uL (0.8-4.8) L 10/06/24 20:53 [place] # (Auto) 0.9 10^3/uL (0.2-0.9) 10/06/24 20:53 Eos # (Auto) 0.0 10^3/uL (0.0-0.8) 10/06/24 20:53 Baso # (Auto) 0.1 10^3/uL (0.0-0.1) 10/06/24 20:53 Nucleated RBC % (auto) 0 % 10/06/24 20:53 Nucleated RBCs # 0.0 /100WBC 10/06/24 20:53 PT 16.00 SECONDS (12.1-14.9) H 10/06/24 20:53 INR 1.20 (0.8-1.2) 10/06/24 20:53 APTT 26.7 SECONDS (23.9-36.7) 10/06/24 20:53 Sodium 128 mmol/L (136-145) L 10/06/24 20:53 Potassium 4.5 mmol/L (3.5-5.1) 10/06/24 20:53 Chloride 92 mmol/L (98-107) L 10/06/24 20:53 Carbon Dioxide 22 mmol/L (22-29) 10/06/24 20:53 Anion Gap 18.5 (5-19) 10/06/24 20:53 BUN 17 mg/dL (8-23) 10/06/24 20:53 Creatinine 0.8 mg/dL (0.5-0.9) 10/06/24 20:53 GFR Calculation 72.9 mL/min (90-130) L 10/06/24 20:53 Glucose 121 mg/dL (65-115) H 10/06/24 20:53 Calculated Osmolality 269 mOsm/kg (285-295) L 10/06/24 20:53 Calcium 12.0 mg/dL (8.5-10.5) H 10/06/24 20:53 Blood Type O Positive 10/06/24 21:40 Rho(D) Type Rh positive 10/06/24 21:40 Antibody Screen Negative 10/06/24 21:40 Crossmatch See Detail 10/06/24 21:40 No radiology studies performed this visit Discharge Plan Discharge Patient Disposition: Xfer Short-Term Hosp Clinical Impression: Anemia Condition: Stable Print Language: Ecuadorean Coding Level of 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
[2024-10-06] MEDS: thrombin 5,000 unit SDV 5000 UNIT XX (20:52)
[2024-10-06] MEDS: tranexamic acid 1,000 MG/100 ML PREMIX 600 MG IV (20:53)
[2024-10-06 21:20] LABS: Mean Corpuscular HGB Conc 29.4 g/dL (30-55); Mean Corpuscular Hemoglobin 25.1 pg (27-33); Mean Corpuscular Volume 85.3 fl (85-98); Nucleated Red Blood Cells % 0 %; Platelet Count 487 10^3/cmm (157-399); Red Blood Count 2.31 10^6/uL (3.85-5.65); White Blood Count 19.78 10^3/uL (3.29-11.43)
[2024-10-06 21:27] LABS: Hematocrit 19.7 % (36-47); Hemoglobin 5.80 g/dL (11.27-16.99)
[2024-10-06 21:52] LABS: Partial Thromboplastin Time 26.7 SECONDS (23.9-36.7)
[2024-10-06 21:53] LABS: INR 1.20 (0.8-1.2); Prothrombin Time 16.00 SECONDS (12.1-14.9)
[2024-10-06 21:58] LABS: Anion Gap 18.5 (5-19); Blood Urea Nitrogen 17 mg/dL (8-23); Calcium 12.0 mg/dL (8.5-10.5); Carbon Dioxide 22 mmol/L (22-29); Chloride 92 mmol/L (98-107); Creatinine Clr Calc Pharmacy 65.8037; Glucose 121 mg/dL (65-115); Osmolality Calculated 269 mOsm/kg (285-295); Potassium 4.5 mmol/L (3.5-5.1); Sodium 128 mmol/L (136-145)
[2024-10-07] VITALS (13 sets, daily range): BP systolic 104–110; BP diastolic 58–68; PULSE 104–118; RESP 15–16; TEMP 36.6–36.9; O2SAT 91–100
[2024-10-07] MEDS: ondansetron 2 mg/ML SDV 2 mL 4 MG IVP (01:42)
[2024-10-07] MEDS: HYDROmorphone 0.5 MG/0.5 ML INJ 1 MG IVP ×2 (01:42→04:12)
[2024-10-07] MEDS: piperacillin-tazobactam 3.375 GM in sodium chloride 0.9% (plus) 50 ML IV (01:42)
--- NOTE | 2024-10-07 02:04 | PC.NURSE ---
report called to Lisa ferrari RN at this time
--- NOTE | 2024-10-07 07:22 | PC.PHAR ---
Will follow up with Pt on when last taken medications and [facility] to verify last fill dates.
== END 2024-10-07 09:43 | disposition short-term general hospital (02) ==
PROVIDERS: Emergency Provider Emergency Medicine
DX: D64.9 Anemia, unspecified (principal); Z87.891 Personal history of nicotine dependence; Z85.89 Personal history of malignant neoplasm of other organs and systems
CPT/HCPCS: 36415; 36430; 80048; 85025; 85610; 85730; 86850; 86900; 86920; 96374; 99285; J1171; J2405; J2543; J3373; J7030; J7050; J9999; P9016